=== PATIENT | female | born 1970 | race Asian ===

== ENCOUNTER 2017-09-20 11:01 | Emergency (ER) | payer OTHER ==
[~2017-09-20] VITALS: Ht 152.4 cm; Wt 93.0 kg
[2017-09-20 12:34] VITALS: BP 154/91
[2017-09-20] MEDS ORDERED: KETOROLAC TROMETH 60MG/2ML VIAL IM ONE (13:30)
== END 2017-09-20 14:28 | disposition home or self-care (01) ==
LOC: ER 11:01
DX: M54.5 Low back pain (principal); M25.511 Pain in right shoulder; I10 Essential (primary) hypertension; N64.4 Mastodynia; V49.40XA Driver injured in collision with unspecified motor vehicles in traffic accident, initial encounter; Y93.89 Activity, other specified; Y92.410 Unspecified street and highway as the place of occurrence of the external cause; Y99.8 Other external cause status
CPT/HCPCS: 71046